=== PATIENT | male | born 1965 | race Asian ===

== ENCOUNTER 2022-12-22 13:12 | Day surgery (SDC) | payer BC ==
[2022-12-18 13:49] LABS: BASOPHILS % (AUTO) 0.5 % (0-1); EOSINOPHILS # (AUTO) 0.3 X10'3 (0-0.9); HEMATOCRIT 38.9 % (42.0-52.0); HEMOGLOBIN 13.6 g/dl (14.0-17.9); LYMPHOCYTES # (AUTO) 1.5 X10'3 (1.1-4.8); LYMPHOCYTES % (AUTO) 23.9 % (21-51); MEAN CORPUSCULAR HGB CONC 34.9 g/dL (33.0-36.5); MEAN CORPUSCULAR VOLUME 83.2 FL (78-98); MEAN PLATELET VOLUME 8.7 FL (7.4-10.4); MONOCYTES # (AUTO) 0.5 X10'3 (0-0.9); MONOCYTES % (AUTO) 7.6 % (2-12); PLATELET COUNT 177 X10'3 (140-440); RED BLOOD COUNT 4.67 X10'6 (4.70-6.10); RED CELL DISTRIBUTION WIDTH 13.1 % (11.5-14.5); WHITE BLOOD COUNT 6.4 X10'3 (4.5-11.0)
[2022-12-18 13:58] LABS: ALBUMIN 4.1 G/DL (3.4-5.0); ANION GAP 9 (8-16); BLOOD UREA NITROGEN 16 MG/DL (7-18); BUN/CREATININE RATIO 12.1 (10.0-20.0); CALCIUM 9.4 MG/DL (8.5-10.1); CHLORIDE 102 MMOL/L (99-107); CHOL/HDL RATIO 1.9 (0.00-4.99); CHOLESTEROL 94 MG/DL (0-200); CREATININE 1.32 MG/DL (0.60-1.10); GLUCOSE 115 MG/DL (70-104); HDL CHOLESTEROL 50 MG/DL (35-60); LDL CHOLESTEROL 32 MG/DL (50-100); POTASSIUM 4.7 MMOL/L (3.5-5.1); SODIUM 138 MMOL/L (135-145); TOTAL CARBON DIOXIDE 26.6 MMOL/L (24-32); TRIGLYCERIDES 68 MG/DL (20-135); eGFR 56 ML/MIN
[2022-12-18 14:02] LABS: PROTHROMBIN TIME 11.1 SECONDS (9.0-12.0)
[2022-12-18 14:03] LABS: APTT 27 SECONDS (22-32)
[~2022-12-22] VITALS: Ht 177.8 cm; Wt 81.3 kg
[2022-12-22] VITALS (8 sets, daily range): BP systolic 113–129; BP diastolic 76–85; PULSE 68–83; RESP 16; TEMP 98.6; O2SAT 94–97
[2022-12-22] MEDS ORDERED: normal saline 1,000 ML IV SCH (13:50)
[2022-12-22] MEDS ORDERED: LORazepam 0.5 MG tablet PO PRN (13:50)
[2022-12-22] MEDS ORDERED: diphenhydrAMINE 25mg capsule PO PRN (13:50)
[2022-12-22] MEDS ORDERED: VALS80TA32 PO (14:34)
[2022-12-22] MEDS ORDERED: MULT-1085 PO (14:34)
[2022-12-22] MEDS ORDERED: METF-881 PO (14:34)
[2022-12-22] MEDS ORDERED: ASPI-611 PO (14:34)
[2022-12-22] MEDS ORDERED: ROSU20TA2 PO (14:34)
[2022-12-22] MEDS ORDERED: Pancrelipase (14:34)
[2022-12-22] MEDS ORDERED: heparin 1,000unit/ml 10ml vial 10 ML ONE (15:44)
[2022-12-22] MEDS ORDERED: LIDOcaine 1% (10mg/ml) 2ml vial ONE (15:44)
[2022-12-22] MEDS ORDERED: verapamil 2.5 mg/ml inj IV ONE (15:44)
[2022-12-22] MEDS ORDERED: midazolam 1 mg/ML 2ml injection ONE (15:44)
[2022-12-22] MEDS ORDERED: fentaNYL/PF 50MCG/1 ML 2ML syringe ONE (15:44)
[2022-12-22] MEDS ORDERED: iohexol 350MG/ML 100ml bottle IV ONE ×2 (15:44→16:24)
[2022-12-22] MEDS ORDERED: clopidogrel 300mg tablet ONE (16:30)
[2022-12-22] MEDS ORDERED: aspirin 325mg tablet ONE (16:30)
[2022-12-22] MEDS ORDERED: ondansetron/PF 4mg/2ml inj IV PRN (17:20)
[2022-12-22] MEDS ORDERED: proCHLORperazine 10 MG/2 ml inj IV PRN (17:25)
[2022-12-22] MEDS ORDERED: HYDROcodone/acetaminophen 10/325mg tab PO PRN (17:25)
[2022-12-22] MEDS ORDERED: HYDROcodone/acetaminophen 5mg/325mg tablet PO PRN (17:25)
== END 2022-12-22 19:20 | disposition home or self-care (01) ==
LOC: SSTAY O 13:12
PROVIDERS: ATTEND Student in an Organized Health Care Education/Training Program
DX: I25.111 Atherosclerotic heart disease of native coronary artery with angina pectoris with documented spasm (principal); I10 Essential (primary) hypertension; E78.5 Hyperlipidemia, unspecified; E11.9 Type 2 diabetes mellitus without complications; Z79.82 Long term (current) use of aspirin; Z79.899 Other long term (current) drug therapy; Z79.84 Long term (current) use of oral hypoglycemic drugs; Z79.01 Long term (current) use of anticoagulants
CPT/HCPCS: 36415; 80048; 80061; 82948; 85025; 85610; 85730; 93005; 93458; 99152; 99153; C1874; C9600; J1644; J2250; J3010; J3490; J7030; Q0163; Q9967; A6258; A6402; C1725; C1751; C1769; C1894